=== PATIENT | female | born 1990 | race African-American/Black ===

== ENCOUNTER 2017-09-04 12:58 | Emergency (ER) | payer SELFPAY ==
--- NOTE | 2017-09-04 13:31 | RAD ---
ACUTE ABDOMINAL SERIES: Date: 09-04-17 Provided Clinical History: Abdominal pain. FINDINGS: Comparison is made with the study dated 01-18-15. The cardiac and mediastinal silhouette is within normal limits. No focal consolidation, pleural fluid or pneumothorax is apparent. Supine and upright abdominal radiographs demonstrate a nonspecific bowel gas pattern. There is no jose dence for pneumoperitoneum. No suspicious calcifications. The osseous structures demonstrate no acute findings. IMPRESSION: No evidence for acute process. POS: BLAIR
[2017-09-04 13:32] LABS: Bilirubin Negative (Negative); Blood, Urine Small (Negative); Clarity Clear (Clear); Glucose, Urine (Dipstick) Negative (Negative); Leukocyte Negative (Negative); Nitrite Negative (Negative); Protein, Urine (Dipstick) Negative (Neg-Trace); Urobilinogen 0.2 mg/dL (0.2-1.0)
[2017-09-04 13:40] LABS: Bacteria/HPF Rare-Few HPF (None Seen); WBC/HPF None Seen HPF (0-3)
== END 2017-09-04 13:55 | disposition home or self-care (01) ==
LOC: SCSER 12:58
DX: K59.00 Constipation, unspecified (principal); F17.210 Nicotine dependence, cigarettes, uncomplicated
CPT/HCPCS: 74022; 81003; 81015